=== PATIENT | male | born 1970 | race Hispanic/Latino ===

== ENCOUNTER 2019-06-21 12:51 | Emergency (ER) | payer OTHER ==
[2019-06-21] MEDS ORDERED: IBUPROFEN 400 MG TABLET ONE (13:31)
[2019-06-21] MEDS ORDERED: IBUPROFEN 200 MG TAB ONE (13:31)
== END 2019-06-21 14:40 | disposition home or self-care (01) ==
LOC: EDH 12:51
DX: S92.402A Displaced unspecified fracture of left great toe, initial encounter for closed fracture (principal); C61 Malignant neoplasm of prostate; Z87.891 Personal history of nicotine dependence; W22.8XXA Striking against or struck by other objects, initial encounter; Y93.89 Activity, other specified; Y92.098 Other place in other non-institutional residence as the place of occurrence of the external cause; Y99.8 Other external cause status
CPT/HCPCS: 73660